=== PATIENT | male | born 1985 | race Caucasian/White ===

== ENCOUNTER 2020-06-08 19:28 | Emergency (ER) | payer SELFPAY ==
[2020-06-08 19:31] VITALS: BP 144/98; PULSE 80; RESP 18; TEMP 36.2; O2SAT 98
--- NOTE | 2020-06-08 19:44 | ED.GENADUL_ITS ---
Discharge Plan Disposition Patient Disposition: HOME Condition: Improving Discharge Details Clinical Impression: Chest wall contusion Primary Care Provider: None,None ED Provider: Hemanth Guillen Home Meds and New Rx's Prescriptions: Continued buprenorphine-naloxone [Suboxone] 8-2 mg Film 8.2 film sublingual DAILY RF: 0 Discharge Instructions Instructions: Contusion in Adults (ED) Additional Instructions: Home to rest today. Continue to liberally hydrate, may use ibuprofen 600 to 800 mg every 6-8 hours as needed for persistent discomfort. Your CAT scan laboratories are reassuring today. Return for any acute concerns. Medical Decision Making 35-year-old male states 3 days ago, he was working under his house jacking it up to adjust the height above the ground. Something slipped and he was pinned under the sj with pressure to his right chest. He was able to self extricate. Since that time he has had right anterior chest discomfort that is worse with deep breath. He was not injured in any other way. Denies back/neck/abdomen pain. He is well-appearing, interactive, with reproducible tenderness to the right anterior chest wall. Oxygenating 98% on room air. Given the potential force applied to the thoracic cage, the patient IV access established, was given anti-inflammatory, referred for screening labs and CT of the chest. Labs: White count 9, hematocrit 39, platelets 253. Reassuring chemistries. CT: No acute findings. See formal report. No pneumothorax or rib fractures. Patient improved following Toradol. Discussed with them this is consistent with contusion of the anterior chest wall. He is stable for outpatient management. HPI General Mode of arrival: ambulatory . Date/Time Provider Initiated Documentation: 06/08/20 19:29 . Limitations to Documentation: no limitations . Information obtained by: patient . History of Present Illness 35 year old M presents to the emergency department with the chief complaint of Right anterior chest pain after blunt trauma, described as moderate, Quality is described as dull, and is localized to the chest and right. Patient reports no radiation. Patient started experiencing this day(s) and it has been constant. Rest improves symptom(s), Movement worsens symptoms . Patient notes cough; denies shortness of breath. Patient did receive the following treatments prior to arrival, none Related Data Home Medications Medication Instructions Recorded Confirmed buprenorphine-naloxone [Suboxone] 8.2 film SUBLINGUAL DAILY 06/08/20 06/08/20 Allergies Allergy/AdvReac Type Severity Reaction Status Date / Time No Known Allergies Allergy Unverified 06/08/20 19:36 General Stated Complaint: Chest/Rib FLEX: 2 Review of Systems Narrative: No loss of consciousness. No belly pain. No neck or back pain. 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 Pleasant, well groomed, interactive. HEAD: Normocephalic, atraumatic ENT: Mucous membranes moist, oropharynx unremarkable, External ear exam unremarkable EYES: PERRL, EOMI NECK: Full ROM, no GEOVANNY, no menigismus CHEST/RESP: Minimal right anterior tenderness, clear to auscultation bilateral, no wheeze/rhonchi/rales CARDIOVASCULAR: RRR, no murmur, rub jeremías. 2+ Rad pulse bilateral ABDOMEN: Soft, nontender, no mass. +Bowel sounds EXT: Full ROM, no edema, no rash Neuro: Grossly normal neurologic exam, conversant, interactive. Psych: Speech fluent, thoughts congruent, affect normal Course Vital Signs Vital signs: Vital Signs Temperature 36.2 C L 06/08/20 19:31 Pulse 80 06/08/20 19:31 Respiratory Rate 18 06/08/20 19:31 Blood Pressure 144/98 H 06/08/20 19:31 Pulse Oximetry 98 06/08/20 19:31 Temperature 36.2 C L 06/08/20 19:31 Temperature Source Skin 06/08/20 19:31 Pulse 80 06/08/20 19:31 Respiratory Rate 18 06/08/20 19:31 Respiratory Effort Non-Labored 06/08/20 19:40 Respiratory Depth Normal 06/08/20 19:40 Respiratory Pattern Normal 06/08/20 19:40 Blood Pressure 144/98 H 06/08/20 19:31 Pulse Oximetry 98 06/08/20 19:31 Oxygen Delivery Method Room Air 06/08/20 19:31 Oxygen Flow Rate 0 06/08/20 19:31 Pain Level 4 06/08/20 19:40
[2020-06-08 19:56] LABS: Abs Immature Grans 0.01 10^3/uL (0.0-0.06); Absolute Basophil Count 0.03 10^3/uL (0.0-0.2); Absolute Eosinophil Count 0.08 10^3/uL (0.0-0.7); Absolute Lymphocyte Count 2.31 10^3/uL (1.2-3.4); Absolute Monocyte Count 0.42 10^3/uL (0.1-0.8); Absolute Neutrophil Count 6.34 10^3/uL (1.2-6.7); Basophils % 0.3; Eosinophils % 0.9; HCT 39.2 % (40.0-50.0); HGB 13.7 g/dL (13.5-17.5); Immature Grans % 0.1; Lymphocytes % 25.1; MCH 31.8 pg (27.0-33.0); MCHC 34.9 % (32.0-36.0); MPV 9.7 fL (8.0-11.0); Monocytes % 4.6; Nucleated RBC 0 %; Platelet Count 253 10^3/uL (130-400); RBC 4.31 10^6/uL (4.36-5.78); RDW 11.4 % (11.8-14.1); RDW-SD 38.5 fL; WBC 9.19 10^3/uL (4.4-10.8)
[2020-06-08] MEDS: Ketorolac 15 MG/ML VIAL IVP (19:58)
[2020-06-08 20:03] LABS: Anion Gap 6.7 mmol/L (3-11); BUN 15 mg/dL (7-18); CO2 28.3 mmol/L (21.0-32.0); CREATININE 0.9 mg/dL (0.70-1.30); Calcium 9.1 mg/dL (8.5-10.1); Chloride 104 mmol/L (98-107); Glucose 102 mg/dL (74-106); Potassium 4.2 mmol/L (3.5-5.1); Sodium 139 mmol/L (136-145)
[2020-06-08] MEDS: Normal Saline Flush 10 ML SYR IVP (20:25)
[2020-06-08] MEDS: Omnipaque 350 MG/ML 100 ML BTL IJ (20:25)
[2020-06-08] MEDS: Normal Saline - Diluent 50 ML VIAL IV (20:25)
--- NOTE | 2020-06-08 20:26 | DI.CT_ITS ---
EXAM: CT CHEST W CLINICAL HISTORY: R anterior CP after blunt trauma TECHNIQUE: Imaging Protocol: Axial computed tomography images with coronal and sagittal reformatted images were created and reviewed CONTRAST MATERIAL: Intravenous: Omnipaque 350 Contrast volume:70 ml. COMPARISON: No exams were available for comparison FINDINGS: Tracheobronchial tree: Patent where visualized. Mediastinum and Tiffanie: No dominant adenopathy or fluid collection. Pulmonary parenchyma: No consolidation or dominant measurable mass. No architectural distortion. Inc idental tiny pulmonary nodules. Pleura: No effusion or pneumothorax. Heart: The heart is not dilated. No coronary artery calcifications are seen. Aorta: Thoracic aorta non-dilated. Upper abdomen: Unremarkable. Lymph nodes: Within normal limits. Bones: Normal. No fracture. Tubes, Catheters, and Lines: None Soft tissues: Unremarkable. IMPRESSION: No acute abnormality. Incidental tiny pulmonary nodules, 4 millimeters or less. Unless the patient is at extremely high risk for lung cancer or metastatic disease, no further follow-up is indicated. RADIATION DOSE DELIVERED: 470.2mGy.cm Total DLP DATA REPOSITORY: All CT scans at this facility are submitted to the National Radiology Data Registry (NRDR) Dose Index Registry (DIR) with the [employer] (ACR). RADIATION OPTIMIZATION: All CT scans at this facility use at least one of these dose optimization te chniques: automated exposure control; mA and/or kV adjustment per patient size (includes targeted exa ms where dose is matched to clinical indication); or iterative reconstruction.
--- NOTE | 2020-06-08 21:18 | DI.VRAD_ITS ---
PROCEDURE INFORMATION: Exam: CT Chest With Contrast; Diagnostic Exam date and time: 06/08/2020 8:19 PM Age: 35 years old Clinical indication: Injury or trauma; Work related; Blunt trauma (contusions or hematomas); Injury date: 06/05/20; Injury details: Construction materials vs chest x3 days ago, increasing pain TECHNIQUE: Imaging protocol: Diagnostic computed tomography of the chest with contrast. 3D rendering (Not supervised by radiologist): MIP and/or 3D reconstructed images were created by the technologist. Radiation optimization: All CT scans at this facility use at least one of these dose optimization techniques: automated exposure control; mA and/or kV adjustment per patient size (includes targeted exams where dose is matched to clinical indication); or iterative reconstruction. Contrast material: [id number]; Contrast volume: 70 ml; Contrast route: INTRAVENOUS (IV); COMPARISON: CR ABD FLAT UPRIGHT PA CHEST 06/23/2013 8:24 PM FINDINGS: Lungs: 3 mm nodule along the minor fissure (2/30). 4 mm nodule laterally in the right upper lobe (2/24). 3 mm ground-glass nodule medially in the right apex (2/15). 2 mm nodule in the central aspect of the left upper lobe (6/176). Pleural spaces: Unremarkable. No pneumothorax. No pleural effusion. Heart: Unremarkable. No cardiomegaly. No pericardial effusion. Aorta: Unremarkable. No aortic aneurysm. Lymph nodes: Unremarkable. No enlarged lymph nodes. Bones/joints: Unremarkable. No acute fracture. Soft tissues: Unremarkable. Other findings: 3 mm nodule in the right apex (2/15). IMPRESSION: 1. Pulmonary nodules. 2. For patients at low risk (minimal or absent history of smoking and of other known risk factors), no routine follow-up is indicated. For patients at high risk (history of smoking or of other known risk factors), consider optional CT Chest at 12 months. (Reference: Shaheed) REFERENCES: Shaheed H, et al. Guidelines for Management of Incidental Pulmonary Nodules Detected on CT Images: From the Fleischner Society 2017. Radiology. 2017;284(1):228-243. Dictated and Authenticated by: Ari Campbell MD. Ordering:SOMMER Saxena MD
[2020-06-08 21:29] VITALS: BP 135/83; PULSE 69; RESP 16; TEMP 36.3; O2SAT 100
== END 2020-06-08 21:42 | disposition home or self-care (01) ==
PROVIDERS: Emergency Provider Emergency Medicine
DX: S20.211A Contusion of right front wall of thorax, initial encounter (principal); W24.0XXA Contact with lifting devices, not elsewhere classified, initial encounter
CPT/HCPCS: 80048; 96374; 99285; 71260; 85025; 99283; J1885; J3490

== ENCOUNTER 2022-09-21 12:03 | Emergency (ER) | payer SELFPAY ==
[2022-09-21 12:11] VITALS: BP 129/87; PULSE 60; TEMP 36.5; O2SAT 98
--- NOTE | 2022-09-21 12:34 | ED.GENADUL_ITS ---
Discharge Plan Disposition Patient Disposition: Home Discharge Details Clinical Impression: Dental abscess Primary Care Provider: None,None ED Provider: Leeroy Oshea Home Meds and New Rx's Prescriptions: Continued methadone 5 mg/5 mL Syringe 60 mg PO DAILY Discontinued buprenorphine-naloxone [Suboxone] 8-2 mg Film 8.2 film sublingual DAILY Patient Comments: no longer taking 09/21/22 CT No Action clindamycin HCl 150 mg capsule 450 mg PO Q8H 14 Days Qty: 126 0RF Discharge Instructions Instructions: Dental Abscess (ED) Additional Instructions: Please follow-up with your dental provider on your normal scheduled date. Return the emergency department for new or significant worsening symptoms otherwise take medication as prescribed until fully completed. If you develop any difficulty breathing swallowing fever chills or severe pain again return to emergency department. Otherwise you should see signs or symptoms of improvement within 48 to 72 hours and if this does not occur follow-up with local urgent care or dentist as you may need a medication change. Discharge Data Discharge Date/Time-TO BE ENTERED AT DEPARTURE: 09/21/22 12:54 Medical Decision Making Patient presenting to the emergency department for chief complaint of dental infection. Patient has had a dental infection of his left lower teeth 21 and 22. Approximately 1 month ago he was placed on amoxicillin after having imaging done by his dentist. He never had any facial swelling or discomfort but they were concerned for infection. Patient noted worsening discomfort over the past 24 hours or so and then started noticing some facial swelling. Patient denies any difficulty breathing or swallowing denies all other symptoms. Physical exam shows moderate facial swelling with no palpable fluctuant abscess. Discussed with patient ultrasound imaging and consideration of drainage versus oral antibiotics. After discussion patient states that he would rather try oral antibiotics and patient was started on Augmentin. Patient otherwise continue tonl-hxj-wauaufh pain medication as needed for discomfort which she is agreeable to. no signs of deep neck space infection ( Retropharyngeal abscess, Mick's angina, Parapharyngeal space infection, Peritonsillar Abscess ([place])) or Epiglottitis. Pt non toxic and stable. I do feel that patient is stable for discharge at this time but patient was encouraged to return for any new or significant worsening of symptoms. After discussion of diagnosis and plan of care patient has no further needs, questions, or concerns and states clear understanding to return to the emergency department for any worsening symptoms. This documentation was generated using [employer] dictation system, please disregard any oddities of phrase or misspellings. HPI General Mode of arrival: ambulatory . Date/Time Provider Initiated Documentation: 09/21/22 12:34 . Limitations to Documentation: no limitations . Information obtained by: patient . History of Present Illness 37 year old M presents to the emergency department with the chief complaint of Dental pain, described as severe, Quality is described as sharp, and is localized to the mouth. and it has been constant. No relieving factors improve symptom(s), Patient notes no other symptoms.. Patient did receive the following treatments prior to arrival, NSAID Related Data Home Medications Medication Instructions Recorded Confirmed methadone 5 mg/5 mL oral syringe 60 mg PO DAILY 09/21/22 09/22/22 (FOR ORAL USE ONLY) clindamycin HCl 150 mg capsule 450 mg PO Q8H 14 days #126 caps 09/22/22 Previous Rx's Medication Instructions Recorded clindamycin HCl 150 mg capsule 450 mg PO Q8H 14 days #126 caps 09/22/22 Allergies Allergy/AdvReac Type Severity Reaction Status Date / Time No Known Allergies Allergy Unverified 09/22/22 07:20 General Stated Complaint: DentalOral FLEX: 4 Review of Systems Constitutional Constitutional: Denies chills and Denies fever(s) ENT Ears, Nose, Mouth, and Throat: Reports as per HPI, Denies change in voice, Reports dental pain, Denies dysphagia, Denies throat swelling and Denies tongue swelling Cardiovascular Cardiovascular: Denies chest pain and Denies dyspnea Respiratory Respiratory: Denies dyspnea, Denies stridor and Denies wheezing Gastrointestinal Gastrointestinal: Denies abdominal pain, Denies dysphagia, Denies nausea and Denies vomiting Integumentary/Breasts Skin/Breast: Denies rash Allergic/Immunologic Allergic/Immunologic: Denies throat swelling, Denies tongue swelling and Denies wheezing PFSH All Active Problems (Updated 09/22/22 @ 10:42 by Cricket Small MD) Chest wall contusion (Acute) Dental abscess (Acute) Acute periapical abscess (Acute) Social History Smoking/Tobacco Use Status: Current every day Tobacco Type: cigarettes Smoking risk assessment performed?: Yes Alcohol Intake: current Alcohol Intake frequency: holidays/special occasions only 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 Housing: house Do you feel safe at home: Yes Do you feel safe in your relationship?: Yes Exam Const General: cooperative Orientation: alert, awake and oriented x3 Limitations: mental status not altered HENMT Head: normal to inspection, normocephalic and atraumatic Ears: hearing grossly normal bilaterally, normal mastoids bilaterally and no periauricular adenopathy General nose exam: external nose normal Mouth: oropharynx normal, no drooling, no muffled voice, normal tongue and no trismus Teeth and gingiva: abnormal tooth or associated gingiva (Teeth 22 and 21) lower left tender, avulsed, with associated gingival edema, enamel fractured and dentin fractured, caries and poor dentition Throat: posterior oropharynx normal, tonsils normal and uvula midline Eyes General: appearance normal, both eyes and all related structures Pupils: PERRL Neck Neck: normal visual inspection, full ROM, no lymphadenopathy, no meningeal signs, trachea midline, supple, no anterior neck swelling and no midline deformity Resp Effort & Inspection: normal respiratory effort and able to speak in complete sentences Course Vital Signs Vital signs: Vital Signs Temperature 36.5 C 09/21/22 12:11 Pulse 60 09/21/22 12:11 Blood Pressure 129/87 09/21/22 12:11 Pulse Oximetry 98 09/21/22 12:11 Temperature 36.5 C 09/21/22 12:11 Temperature Source Temporal Artery Scan 09/21/22 12:11 Pulse 60 09/21/22 12:11 Respiratory Effort Normal 09/21/22 12:14 Blood Pressure 129/87 09/21/22 12:11 Pulse Oximetry 98 09/21/22 12:11 Pain Level 0 09/21/22 12:14
== END 2022-09-21 12:54 | disposition home or self-care (01) ==
PROVIDERS: Emergency Provider Nurse Practitioner Family
DX: K08.89 Other specified disorders of teeth and supporting structures (principal); K04.7 Periapical abscess without sinus; F17.210 Nicotine dependence, cigarettes, uncomplicated
CPT/HCPCS: 99282

== ENCOUNTER 2022-09-22 07:10 | Emergency (ER) | payer SELFPAY ==
[2022-09-22 07:14] VITALS: BP 127/86; PULSE 72; RESP 18; TEMP 37.2; O2SAT 99
--- NOTE | 2022-09-22 07:30 | DI.CT_ITS ---
Exam(s) CT FACIAL W EXAM: CT FACIAL W CLINICAL HISTORY: left denal/submandibular infection. TECHNIQUE: Imaging Protocol: Axial computed tomography images with coronal and sagittal reformatted images were created and reviewed CONTRAST MATERIAL: Intravenous: Omnipaque 350 Contrast volume:100 mL COMPARISON: No exams were available for comparison FINDINGS: Facial Bones: No definite fracture is noted in facial bones. No destructive lesions to suggest osteo myelitis. There are multiple dental caries present. There lucency seen around the root of right man dibular molar suspicious for periapical abscesses. Findings are also of concern in 1st and 2nd left bicuspids. Sinuses and Mastoids: Unremarkable. Globes, extraocular muscles, optic nerves and retrobulbar fat: Normal. Upper aerodigestive tract: Normal. Mandible and bilateral temporomandibular joints: Normal. Soft tissues: There is edema seen in the soft tissues of the left submandibular region and the left c heek. No drainable fluid collection is seen. There is mild asymmetric enlargement of the left adeno ids. No focal fluid collection is seen to suggest an abscess. Enhancement: No abnormal enhancement. IMPRESSION: 1. Soft tissue edema seen in the left submandibular space and the left cheek consistent with cellulit is. No drainable abscess is seen in this region. 2. Multiple dental caries and suspicious for mandibular periapical abscesses. 3. Mild asymmetric enlargement of the left adenoids. An infectious or inflammatory process should be considered. No focal fluid collection is seen to suggest an abscess. 4. No CT findings to suggest osteomyelitis. RADIATION DOSE DELIVERED: 732.94mGy.cm Total DLP DATA REPOSITORY: All CT scans at this facility are submitted to the National Radiology Data Registry (NRDR) Dose Index Registry (DIR) with the [place] [employer] (ACR). RADIATION OPTIMIZATION: All CT scans at this facility use at least one of these dose optimization te chniques: automated exposure control; mA and/or kV adjustment per patient size (includes targeted exa ms where dose is matched to clinical indication); or iterative reconstruction.
[2022-09-22 07:52] LABS: Abs Immature Grans 0.02 10^3/uL (0.0-0.06); Absolute Basophil Count 0.04 10^3/uL (0.0-0.2); Absolute Eosinophil Count 0.03 10^3/uL (0.0-0.7); Absolute Lymphocyte Count 0.93 10^3/uL (1.2-3.4); Absolute Monocyte Count 0.66 10^3/uL (0.1-0.8); Absolute Neutrophil Count 7.63 10^3/uL (1.2-6.7); Basophils % 0.4; Eosinophils % 0.3; HCT 40.6 % (40.0-50.0); HGB 13.9 g/dL (13.5-17.5); Immature Grans % 0.2; MCH 30.6 pg (27.0-33.0); MCHC 34.2 % (32.0-36.0); MCV 89 fL (80-95); MPV 9.9 fL (8.0-11.0); Monocytes % 7.1; Platelet Count 215 10^3/uL (130-400); RBC 4.54 10^6/uL (4.36-5.78); RDW 11.9 % (11.8-14.1); RDW-SD 38.5 fL; WBC 9.31 10^3/uL (4.4-10.8)
[2022-09-22] MEDS: Ketorolac 15 MG/ML VIAL IVP (07:56)
[2022-09-22] MEDS: Dexamethasone 10 MG/ML VIAL IVP (07:56)
[2022-09-22] MEDS: cefTRIAXone 2 GM/50 ML BAG IVPB (07:56)
--- NOTE | 2022-09-22 08:01 | ED.GENADUL_ITS ---
Discharge Plan Discharge Details Chief Complaint: Allergic Primary Care Provider: None,None ED Provider: Yon Boykin Home Meds and New Rx's Prescriptions: No Action methadone 5 mg/5 mL Syringe 60 mg PO DAILY amoxicillin-pot clavulanate 875-125 mg tablet 1 tab PO Q12H 7 Days Qty: 14 0RF Medical Decision Making 47-year-old male presents with worsening facial infection, start a moxicillin/clavulanate, swelling has gotten worse over the last 24 hours. Patient has large areas indurated soft tissue in submandibular region, no submental or sublingual induration, patient has normal voice tolerating secretions no respiratory distress. Switch from amoxicillin/clavulanate to ceftriaxone and Flagyl given patient is concerned he may have had allergic reaction to the amoxicillin. We will add anti-inflammatory analgesia in the form of Toradol and dexamethasone, will obtain stat CT facial with contrast. Disposition pending imaging results and response to medication 8: 45 patient resting comfortably, awaiting CT scan disposition pending response to medications and imaging results HPI General Date/Time Provider Initiated Documentation: 09/22/22 07:29 . HPI Narrative: 37-year-old male recent diagnosis with dental/facial infection started on amoxicillin/clavulanate, with worsening facial swelling, endorse that his lip and the area under his chin was also swelling took Benadryl and smoked a cigarette with some relief however facial swelling much worsened per patient Related Data Home Medications Medication Instructions Recorded Confirmed amoxicillin 875 mg-potassium 1 tab PO Q12H 7 days #14 tabs 09/21/22 09/22/22 clavulanate 125 mg tablet methadone 5 mg/5 mL oral syringe 60 mg PO DAILY 09/21/22 09/22/22 (FOR ORAL USE ONLY) Previous Rx's Medication Instructions Recorded amoxicillin 875 mg-potassium 1 tab PO Q12H 7 days #14 tabs 09/21/22 clavulanate 125 mg tablet Allergies Allergy/AdvReac Type Severity Reaction Status Date / Time No Known Allergies Allergy Unverified 09/22/22 07:20 General Stated Complaint: Allergic FLEX: 3 Review of Systems Narrative: Review of Systems Constitutional: negative Eyes: negative ENT: Facial swelling Cardiovascular: negative Respiratory: negative Gastrointestinal: negative : negative Musculoskeletal: negative Skin: negative Neurologic: negative Psych: negative PFSH All Active Problems (Updated 09/21/22 @ 12:34 by Leeroy Oshea NP) Chest wall contusion (Acute) Dental abscess (Acute) Social History Smoking/Tobacco Use Status: Current every day Tobacco Type: cigarettes Smoking risk assessment performed?: Yes Alcohol Intake: current Alcohol Intake frequency: holidays/special occasions only 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 Housing: house Do you feel safe at home: Yes Do you feel safe in your relationship?: Yes Exam Narrative Exam Narrative: Physical Examination General: alert, awake, cooperative, resting comfortably, no acute distress HEENT: Large indurated submandibular swelling to left side of face, no sublingual or submental induration, patient is tolerating secretions has normal voice no stridor Chest: normal to inspection Respiratory: normal respiratory effort, speaking in full sentences, clear to auscultation, no wheezing, rales or rhonchi Cardiac: regular rate, regular rhythm, S1S2 intact, no murmurs rubs or gallops GI: abdomen soft, non-tender, non-distended; no palpable mass or hepatosplenomegaly Skin: no lesions, rashes or trauma appreciated Neuro: AAOx3, normal speech, moving all extremities Psych: Appropriate mood and affect Course Vital Signs Vital signs: Vital Signs Temperature 37.2 C 09/22/22 07:14 Pulse 72 09/22/22 07:14 Respiratory Rate 18 09/22/22 07:14 Blood Pressure 127/86 09/22/22 07:14 Pulse Oximetry 99 09/22/22 07:14 Temperature 37.2 C 09/22/22 07:14 Temperature Source Temporal Artery Scan 09/22/22 07:14 Pulse 72 09/22/22 07:14 Respiratory Rate 18 09/22/22 07:14 Respiratory Effort Normal, Non-Labored 09/22/22 07:21 Respiratory Pattern Normal 09/22/22 07:21 Blood Pressure 127/86 09/22/22 07:14 Blood Pressure Position Sitting 09/22/22 07:14 Pulse Oximetry 99 09/22/22 07:14 Oxygen Delivery Method Room Air 09/22/22 07:14 Oxygen Flow Rate 0 09/22/22 07:14
[2022-09-22 08:13] LABS: ALT 16 U/L (16-63); AST 21 U/L (15-37); Albumin 3.7 g/dL (3.4-5.0); Alkaline Phosphatase 77 U/L (46-116); Anion Gap 4.8 mmol/L (3-11); BUN 8 mg/dL (7-18); Bilirubin, Total 0.5 mg/dL (0.2-1.0); CO2 29.2 mmol/L (21.0-32.0); CREATININE 0.8 mg/dL (0.70-1.30); Calcium 8.4 mg/dL (8.5-10.1); Chloride 107 mmol/L (98-107); Glucose 108 mg/dL (74-106); Potassium 4.2 mmol/L (3.5-5.1); Sodium 141 mmol/L (136-145); Total Protein 7.3 g/dL (6.4-8.2)
[2022-09-22] MEDS: metroNIDAZOLE 500 MG/100 ML BAG 100 MG IVPB (08:32)
[2022-09-22 09:11] VITALS: BP 116/79; PULSE 58; RESP 18; TEMP 36.8; O2SAT 98
--- NOTE | 2022-09-22 09:19 | ED.PROG_ITS ---
Date of service: 09/22/22 Time of Service: 09:19 Medical Decision Making I received signout on this 37-year-old male with worsening facial swelling and pain on outpatient amoxicillin clavulanic acid. His presentation is concerning for a dental abscess or deep face infection. He is pending a CT scan of his nec k with IV contrast. He is protecting his airway. If there are any significant CT findings we will touch base with ENT at [facility]. 9:15 AM Comprehensive metabolic panel with no MICKEY no significant LFT abnormalities nor any acute electrolyte abnormalities. CBC with no anemia thrombocytopenia nor leukocytosis. 10:[address] read showed multiple mandibular periapical abscesses but no evidence of mandibular osteomyelitis and no large confluent abscess. I met with the patient and he reported that his swelling seemed improved. He reported that his breathing was also markedly improved. Given that he has dental follow-up in 2 weeks I feel he is appropriate for discharge with strict return indications. Will treat him with clindamycin 450 mg p.o. every 8 hours for 14 days. In the emergency department he received metronidazole and ceftriaxone. He reported that he had previously been on amoxicillin clavulanic acid from his dentist at the end of July. I advised him to return to the ED if he could not handle his secretions if he developed worsening swelling or had any difficulty breathing. Sign Out Sign Out Data: Sign Out Comment: facial infection; pending CT and reassess response to meds Last updated by Yon Boykin MD at 09/22/22 08:45 Discharge Plan Disposition Patient Disposition: Home Discharge Details Clinical Impression: Acute periapical abscess Primary Care Provider: None,None ED Provider: Cricket Small Home Meds and New Rx's Prescriptions: New clindamycin HCl 150 mg capsule 450 mg PO Q8H 14 Days Qty: 126 0RF Continued methadone 5 mg/5 mL Syringe 60 mg PO DAILY Discontinued amoxicillin-pot clavulanate 875-125 mg tablet 1 tab PO Q12H 7 Days Qty: 14 0RF Discharge Instructions Instructions: Dental Abscess (ED) Additional Instructions: Please read all of the information that accompanies these instructions. You were seen in the emergency department for your jaw swelling. You have multiple small abscesses below your teeth for which you are receiving an antibiotic that you should take as directed. Please schedule an appointment with your dentist at the end of this coming week if possible. Please return to the emergency department if difficulty swallowing worsening swelling or any fevers or chills.
[2022-09-22] MEDS: Normal Saline - Diluent 50 ML VIAL IJ (09:38)
[2022-09-22] MEDS: Omnipaque 350 MG/ML 100 ML BTL IJ (09:39)
[2022-09-22] MEDS: Normal Saline Flush 10 ML SYR IVP (09:40)
--- NOTE | 2022-09-22 10:19 | DI.VRAD_ITS ---
PROCEDURE INFORMATION: Exam: CT Maxillofacial With Contrast; Mandible Exam date and time: 09/22/2022 9:37 AM Age: 37 years old Clinical indication: Pain; Other: Left denal/submandibular infection TECHNIQUE: Imaging protocol: Computed tomography maxillofacial with intravenous contrast. Exam focused on the mandible. COMPARISON: No relevant prior studies available. FINDINGS: Bones/joints: Maxilla is unremarkable. No acute fracture. The temporomandibular joints are within normal limits. Paranasal sinuses: Normal. No air-fluid levels. Soft tissues: Unremarkable. Dental: There are many missing teeth broken crowns. There are multiple dental caries. The right wisdom tooth or dental caries undermining the filling and the right second mandibular molar. These teeth also have lucency around the root worrisome for periapical abscesses. Periapical abscesses of the left first and second bicuspids. Pharynx: There is mucosal thickening in the left parapharyngeal mucosal space of the eustachian tube, images 2:104-120. IMPRESSION: 1. The teeth are in this repair. There are multiple mandibular periapical abscesses. No gross evidence of mandibular osteomyelitis. 2. Nonspecific mucosal enhancement of the left parapharyngeal mucosal space near the eustachian tube. Dictated and Authenticated by: Maksim Payne MD. Ordering:BISI Marvin MD
[2022-09-22 10:49] VITALS: BP 132/82; PULSE 85; RESP 18; TEMP 36.8; O2SAT 99
== END 2022-09-22 10:51 | disposition home or self-care (01) ==
PROVIDERS: Emergency Medicine; Emergency Provider Emergency Medicine
DX: K04.7 Periapical abscess without sinus; F17.200 Nicotine dependence, unspecified, uncomplicated
CPT/HCPCS: 80053; 96365; 96367; 96375; 99285; 70487; 85025; 99284; J1100; J1885; J3490